=== PATIENT | female | born 1970 | race African-American/Black ===

== ENCOUNTER 2016-10-06 09:36 | Emergency (ER) | payer OTHER ==
[~2016-10-06] VITALS: Ht 167.6 cm; Wt 88.9 kg
[2016-10-06] MEDS ORDERED: LATUDA120 MG PO (10:38)
[2016-10-06] MEDS ORDERED: ASPIR 8181 MG ORAL (10:38)
[2016-10-06] MEDS ORDERED: ATIVAN1 MG ORAL (10:38)
[2016-10-06] MEDS ORDERED: CYCLOBENZAPRINE10 MG ORAL (10:38)
[2016-10-06] MEDS ORDERED: BACLOFEN10 MG ORAL (10:38)
[2016-10-06] MEDS ORDERED: PROZAC40 MG ORAL (10:38)
[2016-10-06] MEDS ORDERED: MECLIZINE HCL25 MG ORAL (10:38)
[2016-10-06] MEDS ORDERED: HYDROCHLOROTHIA25 MG ORAL (10:38)
[2016-10-06] MEDS ORDERED: ABILIFY10 MG ORAL (10:38)
[2016-10-06] MEDS ORDERED: IMITREX50 MG ORAL (10:38)
[2016-10-06] MEDS ORDERED: ROBAXIN-750750 MG PO (11:26)
[2016-10-06 11:35] VITALS: BP 115/75
[2016-10-06 11:36] VITALS: BP 115/75
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
== END 2016-10-06 11:36 | disposition home or self-care (01) ==
LOC: EMR 10:29
DX: M25.561 Pain in right knee (principal); G89.29 Other chronic pain; I10 Essential (primary) hypertension; Z88.6 Allergy status to analgesic agent; Z88.0 Allergy status to penicillin
CPT/HCPCS: 99283

== ENCOUNTER 2017-05-08 16:57 | Emergency (ER) | payer OTHER ==
[~2017-05-08] VITALS: Ht 167.6 cm; Wt 86.2 kg
[~2017-05-08 16:57] MED LIST: ABILIFY10 MG ORAL; ASPIR 8181 MG ORAL; ATIVAN1 MG ORAL; BACLOFEN10 MG ORAL; CYCLOBENZAPRINE10 MG ORAL; HYDROCHLOROTHIA25 MG ORAL; IMITREX50 MG ORAL; LATUDA120 MG PO; MECLIZINE HCL25 MG ORAL; PROZAC40 MG ORAL; ROBAXIN-750750 MG PO
[2017-05-08 17:11] VITALS: BP 110/77
--- NOTE | 2017-05-08 17:41 | Emergency Room Report ---
History of Present Illness General Chief Complaint: Pain Source: Patient, Medical Record Present Illness HPI 47-year-old female walks in with whole body pain for 2 weeks, "just not feeling well". Denies chest pain, shortness of breath, abdominal pain, nausea vomiting , diarrhea, headache, sick contacts, foreign travel, states she has lupus. He is on medication for lupus currently, but non-steroids. Denies any new rash. Denies any other medical problems. Patient endorses normal appetite, able to tolerate by mouth water, no weight loss, no night sweats, Allergies: Coded Allergies: ACETAMINOPHEN (Verified Allergy, Unknown, 10/06/16) HYDROCODONE (Verified Allergy, Unknown, 10/06/16) PENICILLINS (Verified Allergy, Unknown, 10/06/16) Patient History Past Medical History: other - SLE Past Surgical History: none Pertinent Family History: none Social History: Denies: smoking, alcohol use, drug use Now: No Immunizations: UTD Reviewed Nursing Documentation: PMH: Agreed, PSxH: Agreed Nursing Documentation-PMH Hx Hypertension: Yes Review of Systems All Other Systems: negative except mentioned in HPI Physical Exam Vital Signs Date Time Temp Pulse Resp B/P (MAP) Pulse Ox O2 Delivery O2 Flow Rate FiO2 05/08/17 17:05 98.8 95 20 110/77 99 Room Air Sp02 EP Interpretation: reviewed, normal General Appearance: normal inspection, well appearing, no apparent distress, alert, GCS 15, non-toxic Head: normocephalic, atraumatic Eyes: bilateral eye PERRL, bilateral eye EOMI ENT: normal ENT inspection, hearing grossly normal, normal voice Neck: normal inspection, full range of motion, supple, no bony tend Respiratory: normal inspection, lungs clear, normal breath sounds, no respiratory distress, no retraction, no wheezing Cardiovascular #1: regular rate, rhythm, no edema Gastrointestinal: normal inspection, normal bowel sounds, non tender, soft, no guarding, no hernia Genitourinary: no CVA tenderness Musculoskeletal: normal inspection, back normal, normal range of motion, Saravanan' s Sign negative Neurologic: normal inspection, alert, oriented x3, responsive, 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, motor strength/tone normal, speech normal Psychiatric: normal inspection, judgement/insight normal, mood/affect normal Skin: normal inspection, normal color, no rash Lymphatic: normal inspection Medical Decision Making Diagnostic Impression: Primary Impression: Whole body pain Additional Impressions: UTI (urinary tract infection) Qualified Codes: N30.00 - Acute cystitis without hematuria Transaminitis Hypokalemia ER Course 47-year-old female with generalized body pain for 2 weeks Vital signs stable, afebrile Looks weak but systemically no sepsis Labs indicate UTI, hypokalemia which was repleted in the ER, and transaminitis which is likely viral Patient feels better after IV fluid hydration and repletion of potassium Disposition: Patient is to be discharged to home. Prescriptions given are Macrobid Patient is instructed to follow up with their primary care doctor within 5 days to recheck LFTs Strict return precautions discussed with patient such as fever, chills, worsening/severe pain, nausea, vomiting, which may indicate severe illness. Patient verbalizes understanding and agrees with plan. Please note that this Emergency Department Report was dictated using [employer] lathe set up operator tool technology software, occasionally this can lead to erroneous entry secondary to interpretation by the dictation equipment EKG Diagnostic Results Rate: normal Rhythm: NSR ST Segments: no acute changes ASA given to the pt in ED: No Last Vital Signs Date Time Temp Pulse Resp B/P (MAP) Pulse Ox O2 Delivery O2 Flow Rate FiO2 05/08/17 17:05 98.8 95 20 110/77 99 Room Air Status: improved Disposition: HOME, SELF-CARE Scripts Nitrofurantoin Monohyd/M-Cryst* (MACROBID 100 MG*) 100 Mg Capsule 100 MG ORAL EVERY 12 HOURS for 7 Days, #14 CAP Prov: BOBBY CHERRY M.D. 05/08/17 Referrals: [facility],REFERRING (PCP) BOBBY CHERRY M.D. May 08, 2017 17:41
[2017-05-08] MEDS ORDERED: Ketorolac 30mg Inj IV ONE (17:45)
[2017-05-08 18:04] LABS: BASOPHILS % (AUTO) 5.8 % (0.0-2.0); EOSINOPHILS % (AUTO) 2.6 % (0.0-3.0); LYMPHOCYTES % (AUTO) 39.7 % (20.0-45.0); MEAN CORPUSCULAR HEMOGLOBIN 29.2 PG (27.0-31.0); MEAN CORPUSCULAR HGB CONC 32.4 G/DL (32.0-36.0); MEAN CORPUSCULAR VOLUME 90 FL (80-99); MEAN PLATELET VOLUME 7.4 FL (6.5-10.1); MONOCYTES % (AUTO) 14.1 % (1.0-10.0); NEUTROPHILS % (AUTO) 37.9 % (45.0-75.0); PLATELET COUNT 173 K/UL (150-450); RED BLOOD COUNT 4.68 M/UL (4.20-5.40); WHITE BLOOD COUNT 9.1 K/UL (4.8-10.8)
[2017-05-08 18:36] LABS: ALANINE AMINOTRANSFERASE 244 U/L (12-78); ALBUMIN/GLOBULIN RATIO 0.7 (1.0-2.7); ANION GAP 6 mmol/L (5-15); ASPARTATE AMINO TRANSFERASE 171 U/L (15-37); CALCIUM 9.1 MG/DL (8.5-10.1); CARBON DIOXIDE 33 MMOL/L (21-32); CHLORIDE 100 MMOL/L (98-107); CKMB 1.2 NG/ML (0.0-3.6); CREATININE 1.2 MG/DL (0.55-1.30); GLOMERULAR FILTRATION RATE 58.9 mL/min (>60); SODIUM 139 MMOL/L (136-145); TOTAL PROTEIN 8.3 G/DL (6.4-8.2)
[2017-05-08 18:37] LABS: POTASSIUM 2.7 MMOL/L (3.5-5.1)
[2017-05-08 19:07] VITALS: BP 115/80
[2017-05-08 19:30] LABS: APPEARANCE,URINE SLIGHTLY CLOUDY; KETONES,URINE NEGATIVE (NEGATIVE); LEUKOCYTE ESTERASE ,URINE 1+ (NEGATIVE); NITRITE,URINE NEGATIVE (NEGATIVE); PH,URINE 5 (4.5-8.0); PROTEIN,URINE 1+ (NEGATIVE); UROBILINOGEN,URINE 1 MG/DL (0.0-1.0)
[2017-05-08 19:38] LABS: BACTERIA,URINE FEW /HPF; SQUAMOUS EPITHELIAL CELL,UR FEW /LPF (NONE/OCC)
[2017-05-08] MEDS ORDERED: NITROFURANTOIN100 M2 ORAL (19:52)
[2017-05-08 20:24] VITALS: BP 109/77
[2017-05-08 20:26] VITALS: BP 109/77
--- NOTE | 2017-05-09 09:21 | Diagnostic Imaging Report ---
Indication: WEAK Technique: One view of the chest Comparison: none Findings: Lungs and pleural spaces are clear. Heart size is normal. Inspiration is suboptimal Impression: No acute process
--- NOTE | 2017-05-09 17:59 | Cardiology Report ---
APPROVED REPORT EKG Measurement Heart [id number] Normal sinus rhythm Normal ECG
== END 2017-05-08 20:26 | disposition home or self-care (01) ==
LOC: EMR 17:35
DX: R52 Pain, unspecified (principal); N39.0 Urinary tract infection, site not specified; R74.0 Nonspecific elevation of levels of transaminase and lactic acid dehydrogenase [LDH]; E87.6 Hypokalemia; I10 Essential (primary) hypertension; M32.9 Systemic lupus erythematosus, unspecified; Z88.6 Allergy status to analgesic agent; Z88.0 Allergy status to penicillin
CPT/HCPCS: 36415; 71010; 80053; 80307; 81003; 82550; 82553; 84484; 85025; 87086; 93005; 96374; 96375; 99283; J1885; J8499

== ENCOUNTER 2017-06-14 23:04 | Emergency (ER) | payer OTHER ==
[~2017-06-14] VITALS: Ht 167.6 cm; Wt 87.1 kg
[~2017-06-14 23:04] MED LIST changes: +NITROFURANTOIN100 M2 ORAL
[2017-06-14 23:15] VITALS: BP 134/88
[2017-06-14] MEDS ORDERED: DOXYCYCLINE MO100 MG ORAL (23:23)
[2017-06-14] MEDS ORDERED: BENADRYL25 MG ORAL (23:23)
--- NOTE | 2017-06-14 23:24 | Emergency Room Report ---
History of Present Illness General Chief Complaint: Skin Rash/Abscess Source: Patient Present Illness HPI This is a 47-year-old female with a history lupus. She's currently taking steroid and cyclosporine. She presents with chief complaint of a rash to her left leg and both arms. She noticed some itchiness and irritation 3 days ago. Rash showed up today. No fever or chills. No nausea no vomiting. Itchiness in that area. No had this problem before. Allergies: Coded Allergies: ACETAMINOPHEN (Verified Allergy, Unknown, 10/06/16) HYDROCODONE (Verified Allergy, Unknown, 10/06/16) PENICILLINS (Verified Allergy, Unknown, 10/06/16) Patient History Past Medical History: see triage record, old chart reviewed Past Surgical History: none Pertinent Family History: none Social History: Denies: smoking Last Menstrual Period: hysterectomy Now: No Immunizations: other Reviewed Nursing Documentation: PMH: Agreed, PSxH: Agreed Nursing Documentation-PMH Hx Hypertension: Yes - lupus, hysterectomy Review of Systems Eye: Denies: eye pain, blurred vision ENT: Denies: ear pain, nose congestion, throat swelling Respiratory: Denies: cough, shortness of breath Cardiovascular: Denies: chest pain, palpitations Gastrointestinal: Denies: abdominal pain, diarrhea, nausea, vomiting Musculoskeletal: Denies: back pain, joint pain Skin: Reports: rash Neurological: Denies: headache, numbness Endocrine: Denies: increased thirst, increased urine Hematologic/Lymphatic: Denies: easy bruising All Other Systems: negative except mentioned in HPI Physical Exam Vital Signs Date Time Temp Pulse Resp B/P (MAP) Pulse Ox O2 Delivery O2 Flow Rate FiO2 06/14/17 23:07 98.4 67 18 134/88 100 Room Air vitals normal Sp02 EP Interpretation: reviewed, normal General Appearance: well appearing, no apparent distress, alert Head: normocephalic, atraumatic Eyes: bilateral eye PERRL, bilateral eye EOMI ENT: hearing grossly normal, normal pharynx Neck: full range of motion, supple, no meningismus Respiratory: chest non-tender, lungs clear, normal breath sounds Cardiovascular #1: regular rate, rhythm, no murmur Gastrointestinal: normal bowel sounds, non tender, no mass, no organomegaly, no bruit, non-distended Musculoskeletal: back normal, gait/station normal, normal range of motion Neurologic: alert, oriented x3 Psychiatric: mood/affect normal Skin: warm/dry, rash - Erythematous rash measuring about 2-3 cm on both upper arms and left lower thigh. No abscess. Medical Decision Making Diagnostic Impression: Primary Impression: Cellulitis Qualified Codes: L03.90 - Cellulitis, unspecified ER Course She presents with cellulitis. No abscess noted. No necrotizing fasciitis. We' ll discharge home. Last Vital Signs Date Time Temp Pulse Resp B/P (MAP) Pulse Ox O2 Delivery O2 Flow Rate FiO2 06/14/17 23:07 98.4 67 18 134/88 100 Room Air Status: unchanged Disposition: HOME, SELF-CARE Condition: Stable Scripts Diphenhydramine Hcl* (BENADRYL*) 25 Mg Capsule 50 MG ORAL Q6H Y for Itching, #30 CAP Prov: JUAN MANUEL MCCAIN M.D. 06/14/17 Doxycycline Monohydrate* (DOXYCYCLINE MONOHYDRATE*) 100 Mg Capsule 100 MG ORAL Q12H, #14 CAP 0 Refills Prov: JUAN MANUEL MCCAIN M.D. 06/14/17 Additional Instructions: Followup with your Dr. in 7 days. Clean with hydrogen peroxide. Return if symptom worsen. JUAN MANUEL MCCAIN M.D. Jun 14, 2017 23:24
[2017-06-14 23:30] VITALS: BP 134/88
== END 2017-06-14 23:40 | disposition home or self-care (01) ==
LOC: EMR 23:34
DX: L03.116 Cellulitis of left lower limb (principal); L03.114 Cellulitis of left upper limb; L03.113 Cellulitis of right upper limb; M32.9 Systemic lupus erythematosus, unspecified; Z88.6 Allergy status to analgesic agent; Z88.0 Allergy status to penicillin; Z90.710 Acquired absence of both cervix and uterus
CPT/HCPCS: 99283

== ENCOUNTER 2017-10-13 14:03 | Emergency (ER) | payer OTHER ==
[~2017-10-13] VITALS: Ht 167.6 cm; Wt 88.5 kg
[~2017-10-13 14:03] MED LIST changes: +BENADRYL25 MG ORAL; +DOXYCYCLINE MO100 MG ORAL
[2017-10-13] MEDS ORDERED: Isovue 100 ml bottle INJ PRN (14:30)
[2017-10-13] MEDS ORDERED: Clindamycin 300mg/ml vial inj IV ONE (14:30)
[2017-10-13 14:59] LABS: BASOPHILS % (AUTO) 1.6 % (0.0-2.0); EOSINOPHILS % (AUTO) 0.7 % (0.0-3.0); HEMATOCRIT 43.7 % (37.0-47.0); HEMOGLOBIN 14.8 G/DL (12.0-16.0); LYMPHOCYTES % (AUTO) 34.1 % (20.0-45.0); MEAN CORPUSCULAR VOLUME 88 FL (80-99); MONOCYTES % (AUTO) 6.3 % (1.0-10.0); NEUTROPHILS % (AUTO) 57.3 % (45.0-75.0); PLATELET COUNT 221 K/UL (150-450); RED BLOOD COUNT 4.94 M/UL (4.20-5.40); RED CELL DISTRIBUTION WIDTH 12.5 % (11.6-14.8); WHITE BLOOD COUNT 5.8 K/UL (4.8-10.8)
[2017-10-13 15:26] LABS: ANION GAP 9 mmol/L (5-15); BLOOD UREA NITROGEN 7 mg/dL (7-18); CALCIUM 9.4 MG/DL (8.5-10.1); CARBON DIOXIDE 26 MMOL/L (21-32); CHLORIDE 103 MMOL/L (98-107); CREATININE 0.7 MG/DL (0.55-1.30); POTASSIUM 3.3 MMOL/L (3.5-5.1); SODIUM 138 MMOL/L (136-145)
[2017-10-13 15:31] LABS: ALANINE AMINOTRANSFERASE 21 U/L (12-78); ALBUMIN 3.6 G/DL (3.4-5.0); ALBUMIN/GLOBULIN RATIO 0.8 (1.0-2.7); ALKALINE PHOSPHATASE 48 U/L (46-116); ASPARTATE AMINO TRANSFERASE 19 U/L (15-37); BILIRUBIN,TOTAL 0.7 MG/DL (0.2-1.0)
--- NOTE | 2017-10-13 16:16 | Emergency Room Report ---
History of Present Illness General Chief Complaint: General Complaint Source: Patient, Medical Record Present Illness HPI Patient states that she has had ongoing dental pain. She has multiple severe cavities. She states that she has had pain in the left side of her face that radiates to her head and left jaw. She did see her dentist. She has planned for one tooth removal. The dentist placed her on ibuprofen and penicillin. She states that her dentist mentioned concern of a possible stroke. She states she has no weakness. She denies feeling or numbness. She denies blurry vision. She denies slurred speech. She denies chest pain or shortness of breath. She denies nausea or vomiting. She denies neck pain or stiffness. She has no other complaints. Allergies: Coded Allergies: ACETAMINOPHEN (Verified Allergy, Unknown, 10/06/16) HYDROCODONE (Verified Allergy, Unknown, 10/06/16) PENICILLINS (Verified Allergy, Unknown, 10/06/16) Patient History Past Medical History: see triage record, other - Lupus, RA Past Surgical History: hysterectomy Social History: Reports: smoking; Denies: alcohol use, drug use Last Menstrual Period: hysterctomy Reviewed Nursing Documentation: PMH: Agreed; PSxH: Agreed Nursing Documentation-PMH Past Medical History: No History, Except For Hx Hypertension: Yes - lupus, hysterectomy Review of Systems All Other Systems: negative except mentioned in HPI Physical Exam Vital Signs Date Time Temp Pulse Resp B/P (MAP) Pulse Ox O2 Delivery O2 Flow Rate FiO2 10/13/17 14:15 98.2 69 18 132/86 99 Room Air 98.2 Sp02 EP Interpretation: reviewed, normal General Appearance: no apparent distress, alert, GCS 15, non-toxic Head: normocephalic, atraumatic Eyes: bilateral eye normal inspection, bilateral eye PERRL ENT: hearing grossly normal, normal pharynx, no angioedema, normal voice, other - Multiple diffuse tooth decay with severe cavities and gum inflamation. +RAFA. No abcess or mass noted. No facial erythema. Neck: full range of motion, supple, supple/symm/no masses Respiratory: chest non-tender, lungs clear, normal breath sounds, no respiratory distress, no retraction, no accessory muscle use, speaking full sentences Cardiovascular #1: regular rate, rhythm, no edema Gastrointestinal: normal bowel sounds, non tender, soft, non-distended, no guarding, no rebound Rectal: deferred Musculoskeletal: back normal, gait/station normal, normal range of motion, non- tender Neurologic: alert, oriented x3, responsive, motor strength/tone normal, sensory intact, speech normal Psychiatric: judgement/insight normal, memory normal, mood/affect normal, no suicidal/homicidal ideation Skin: normal color, no rash, warm/dry, well hydrated Lymphatic: adenopathy - L. anterior cervical, submandibular RAFA Medical Decision Making Diagnostic Impression: Primary Impression: Odontogenic pain Additional Impression: Dental caries ER Course This patient has a physical exam consistent with odontogenic pain. I did obtain a CT of the face. There is no evidence of facial abscess. There is also no evidence of cellulitis or fascial abscess on physical exam. The patient has arty on penicillin from her dentist. She is being followed by her dentist. I will give her Ultram as an adjunct to the ibuprofen that she currently has. At this time, I did not identify an emergency medical condition. The feared concern of CVA is not a concern at this time. The patient has no CVA history or findings on exam that would make me concerned for this. I did not pursue this diagnosis any further. The patient is given close return precautions and follow-up instructions. Laboratory Tests Test 10/13/17 14:37 White Blood Count 5.8 K/UL (4.8-10.8) Red Blood Count 4.94 M/UL (4.20-5.40) Hemoglobin 14.8 G/DL (12.0-16.0) Hematocrit 43.7 % (37.0-47.0) Mean Corpuscular Volume 88 FL (80-99) Mean Corpuscular Hemoglobin 30.0 PG (27.0-31.0) Mean Corpuscular Hemoglobin Concent 33.9 G/DL (32.0-36.0) Red Cell Distribution Width 12.5 % (11.6-14.8) Platelet Count 221 K/UL (150-450) Mean Platelet Volume 7.5 FL (6.5-10.1) Neutrophils (%) (Auto) 57.3 % (45.0-75.0) Lymphocytes (%) (Auto) 34.1 % (20.0-45.0) Monocytes (%) (Auto) 6.3 % (1.0-10.0) Eosinophils (%) (Auto) 0.7 % (0.0-3.0) Basophils (%) (Auto) 1.6 % (0.0-2.0) Sodium Level 138 MMOL/L (136-145) Potassium Level 3.3 MMOL/L (3.5-5.1) L Chloride Level 103 MMOL/L (98-107) Carbon Dioxide Level 26 MMOL/L (21-32) Anion Gap 9 mmol/L (5-15) Blood Urea Nitrogen 7 mg/dL (7-18) Creatinine 0.7 MG/DL (0.55-1.30) Estimate Glomerular Filtration Rate > 60 mL/min (>60) Glucose Level 96 MG/DL (74-106) Calcium Level 9.4 MG/DL (8.5-10.1) Total Bilirubin 0.7 MG/DL (0.2-1.0) Aspartate Amino Transferase (AST) 19 U/L (15-37) Alanine Aminotransferase (ALT) 21 U/L (12-78) Alkaline Phosphatase 48 U/L (46-116) Total Protein 8.3 G/DL (6.4-8.2) H Albumin 3.6 G/DL (3.4-5.0) Globulin 4.7 g/dL Albumin/Globulin Ratio 0.8 (1.0-2.7) L CT/MRI/US Diagnostic Results CT/MRI/US Diagnostic Results : Imaging Test Ordered: CT max/facial Impression Impression: Lucency of the alveolar ridge of the right maxillary, as described, probably ex vacuo related to prior extraction of the second right maxillary premolar. Osteomyelitis as etiology of this finding considered less likely but not completely excludable Generalizer artifact of the anterior alveolar ridge of the maxilla without evidence of discrete apical root abscess. Of doubtful significance, but could represent early periodontal disease Evidence of multiple dental caries and prior dental extractions Adenoidal hypertrophy, nonspecific No evidence of facial soft tissue abscess. No evidence of significant sinus disease Last Vital Signs Date Time Temp Pulse Resp B/P (MAP) Pulse Ox O2 Delivery O2 Flow Rate FiO2 10/13/17 14:15 98.2 69 18 132/86 99 Room Air 98.2 Disposition: HOME, SELF-CARE Condition: Improved Referrals: [facility],REFERRING (PCP) VIKRAM ROSARIO D.O. Oct 13, 2017 16:16
[2017-10-13 16:27] VITALS: BP 126/89
--- NOTE | 2017-10-13 16:42 | Diagnostic Imaging Report ---
Indications: Tooth pain Technique: IV administration nonionic contrast. Spiral images obtained through the face. Multiplanar reconstructions were generated.Total dose length product 576.03 mGycm. CTDIvol(s) 28.19 mGy. Dose reduction achieved using automated exposure control Comparison: none Findings: There is evidence of prior extraction of the second right maxillary premolar. There is slight rarefaction of the alveolar ridge of the maxilla in the area previously occupied by the root. This is somewhat ill-defined and trabecular markings are seen within the area of rarefaction. There is slight rarefaction of the alveolar ridge surrounding the roots of the maxillary incisors, particularly on the right, but this is not discrete. There is evidence of multiple dental caries. There is evidence of multiple prior mandibular dental extractions. No periapical mandibular abnormality demonstrated. The sinuses are clear. No evidence of acute fracture. The optic globes and retroseptal orbits are unremarkable. No significant facial soft tissue swelling is demonstrated. Somewhat unusual appearance to the bilateral parotid glands, with symmetric anterior extension of glandular tissue bilaterally. There is adenoidal hypertrophy. The nasopharynx, hypopharynx, oropharynx, and visualized portions of the larynx are otherwise unremarkable. No prevertebral soft tissue swelling. No discrete fluid collections to suggest abscess. The visualized intracranial structures are unremarkable.. Impression: Lucency of the alveolar ridge of the right maxillary, as described, probably ex vacuo related to prior extraction of the second right maxillary premolar. Osteomyelitis as etiology of this finding considered less likely but not completely excludable Generalizer artifact of the anterior alveolar ridge of the maxilla without evidence of discrete apical root abscess. Of doubtful significance, but could represent early periodontal disease Evidence of multiple dental caries and prior dental extractions Adenoidal hypertrophy, nonspecific No evidence of facial soft tissue abscess. No evidence of significant sinus disease The CT scanner at [facility] is accredited by the [employer] and the scans are performed using protocols designed to limit radiation exposure to as low as reasonably achievable to attain images of sufficient resolution adequate for diagnostic evaluation.
[2017-10-13] MEDS ORDERED: POTASSIUM CHLO10 MEQ ORAL (17:25)
[2017-10-13] MEDS ORDERED: ACETAMINOPHEN-1 EAC1 ORAL (17:25)
[2017-10-13 17:51] VITALS: BP 132/85
== END 2017-10-13 17:51 | disposition home or self-care (01) ==
LOC: EMR 14:46
DX: K02.9 Dental caries, unspecified (principal); M32.9 Systemic lupus erythematosus, unspecified; Z90.710 Acquired absence of both cervix and uterus; Z88.6 Allergy status to analgesic agent; Z88.0 Allergy status to penicillin
CPT/HCPCS: 36415; 70487; 80053; 85025; 96361; 96374; 99284; Q9967; S0077; J8499

== ENCOUNTER 2019-04-02 04:25 | Emergency (ER) | payer OTHER ==
[~2019-04-02] VITALS: Ht 167.6 cm; Wt 90.7 kg
[~2019-04-02 04:25] MED LIST changes: +ACETAMINOPHEN-1 EAC1 ORAL; +POTASSIUM CHLO10 MEQ ORAL
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
--- NOTE | 2019-04-02 04:48 | NUR ---
ED Nurse Note: Patient seen by MD. Patient requesting socks - same provided. Await urine sample.
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
--- NOTE | 2019-04-02 04:58 | NUR ---
ED Nurse Note: Medications as prescribed.
[2019-04-02] MEDS ORDERED: HYDROcodone/Acetamin 5/325 tab ORAL ONE (05:00)
--- NOTE | 2019-04-02 05:21 | NUR ---
ED Nurse Note: Urine sample obtained and sent to the lab.
[2019-04-02 05:34] LABS: APPEARANCE,URINE CLEAR; BILIRUBIN, URINE NEGATIVE (NEGATIVE); COLOR,URINE PALE YELLOW; GLUCOSE, URINE (UA) NEGATIVE (NEGATIVE); KETONES,URINE NEGATIVE (NEGATIVE); LEUKOCYTE ESTERASE ,URINE NEGATIVE (NEGATIVE); NITRITE,URINE NEGATIVE (NEGATIVE); PH,URINE 5 (4.5-8.0); PROTEIN,URINE NEGATIVE (NEGATIVE); UROBILINOGEN,URINE NORMAL MG/DL (0.0-1.0)
--- NOTE | 2019-04-02 05:34 | NUR ---
ED Nurse Note: Pain reassessment patient states she has no pain atthis moment. Patient in semi recumberant position laying on [place].
[2019-04-02] MEDS ORDERED: PREDNISONE2.5 MG ORAL (05:50)
[2019-04-02] MEDS ORDERED: PREDNISONE5 M4 PO (05:50)
[2019-04-02] MEDS ORDERED: IBUPROFEN600 MG ORAL ×2 (05:52→06:14)
[2019-04-02] MEDS ORDERED: ZOLOFT25 MG ORAL (05:53)
[2019-04-02] MEDS ORDERED: LIPITOR80 MG ORAL (05:59)
--- NOTE | 2019-04-02 05:59 | NUR ---
ED Nurse Note: Medications updated as per patient report. Patient transferred to radiology.
--- NOTE | 2019-04-02 06:02 | NUR ---
ED Nurse Note: Patient returned from radiology.
[2019-04-02 06:05] VITALS: BP 125/77
[2019-04-02] MEDS ORDERED: HYDROCODON-ACE1 EA15 ORAL (06:14)
--- NOTE | 2019-04-02 06:51 | Diagnostic Imaging Report ---
Indication: Pain status post fall Technique: Noncontrast spiral acquisitions obtained through the pelvis. Multiplanar reconstructions generated. Total dose length product 1327 mGycm. CTDIvol(s) 36 mGy. Dose reduction achieved using automated exposure control Comparison: none Findings: No acute fractures. No dislocations. The uterus is not visualized, presumed surgically absent. A 3.5 cm cyst is incidentally noted in the right ovary Impression: No acute bony or soft tissue trauma This agrees with the preliminary interpretation provided overnight by [facility] teleradiology service. The CT scanner at [facility] is accredited by the [employer] and the scans are performed using protocols designed to limit radiation exposure to as low as reasonably achievable to attain images of sufficient resolution adequate for diagnostic evaluation.
[2019-04-02 06:58] VITALS: BP 127/74
--- NOTE | 2019-04-02 06:59 | NUR ---
ER DISCHARGE NOTE: Patient is cleared to be discharged per ERMD, pt is aox4, on room air, with stable vital signs. pt was given dc and prescription instructions, pt was able to verbalize understanding, pt id band removed. pt is able to ambulate with steady gait. pt took all belongings.
== END 2019-04-02 07:00 | disposition home or self-care (01) ==
LOC: EMR 04:56
DX: M53.3 Sacrococcygeal disorders, not elsewhere classified (principal); I10 Essential (primary) hypertension; F31.9 Bipolar disorder, unspecified; Z90.710 Acquired absence of both cervix and uterus; Z88.0 Allergy status to penicillin
CPT/HCPCS: 72192; 81003; Z7502; 99284